=== PATIENT | female | born 1965 | race Caucasian/White ===

== ENCOUNTER → 2017-07-04 | Outpatient (CLI) | payer OTHER ==
[~2017-07-04] MED LIST: ONDA4TAB7 PO; OXYC5CAP2 PO
== END | disposition home or self-care (01) ==
LOC: CFH 07:42
PROVIDERS: ATTEND Family Medicine
DX: Z12.31 Encounter for screening mammogram for malignant neoplasm of breast (principal)
CPT/HCPCS: G0202

== ENCOUNTER → 2017-12-02 | Outpatient (CLI) | payer BC | END | disposition home or self-care (01) | LOC: CFH 14:20 | PROVIDERS: ATTEND Family Medicine | DX: J01.90 Acute sinusitis, unspecified (principal) | CPT/HCPCS: 70220 ==

== ENCOUNTER → 2018-10-21 | Outpatient (CLI) | payer BC | END | disposition home or self-care (01) | LOC: CFH 11:56 | PROVIDERS: ATTEND Family Medicine | DX: Z12.31 Encounter for screening mammogram for malignant neoplasm of breast (principal) | CPT/HCPCS: 77067 ==

== ENCOUNTER 2018-12-03 09:51 | Outpatient (CLI) | payer BC | END 2018-12-03 23:59 | disposition home or self-care (01) | LOC: CFH 09:51 | PROVIDERS: ATTEND Obstetrics & Gynecology Female Pelvic Medicine and Reconstructive Surgery | DX: R22.2 Localized swelling, mass and lump, trunk (principal) | CPT/HCPCS: 76604 ==